=== PATIENT | male | born 2000 | race Caucasian/White ===

== ENCOUNTER 2024-11-20 19:07 | Emergency (ER) | payer MEDICAID ==
[~2024-11-20] VITALS: Ht 167.6 cm; Wt 75.2 kg
[2024-11-20 19:23] VITALS: O2SAT 98
[2024-11-20] MEDS: KETOROLAC 30MG/ML VIAL IM ONE (22:12)
[2024-11-20] MEDS ORDERED: IBUP-2028 MT (23:51)
[2024-11-21 00:52] VITALS: BP 105/78; PULSE 85; RESP 20; TEMP 36.8; O2SAT 98
== END 2024-11-21 00:37 | disposition home or self-care (01) ==
LOC: ER 19:07
DX: M25.552 Pain in left hip (principal); M79.652 Pain in left thigh; V03.10XA Pedestrian on foot injured in collision with car, pick-up truck or van in traffic accident, initial encounter; Y93.89 Activity, other specified; Y92.89 Other specified places as the place of occurrence of the external cause; Y99.8 Other external cause status
CPT/HCPCS: 99285; 72192; 73552; 96372; J1885